=== PATIENT | female | born 1965 | race Caucasian/White ===

== ENCOUNTER 2022-06-05 17:24 | Emergency (ER) | payer OTHER ==
[2022-06-05] MEDS ORDERED: AMOX TR-K CLV1 EAC4 PO (19:07)
== END 2022-06-05 19:15 | disposition home or self-care (01) ==
LOC: FER 17:24
DX: S01.511A Laceration without foreign body of lip, initial encounter (principal); Z23 Encounter for immunization; Z91.040 Latex allergy status; W54.0XXA Bitten by dog, initial encounter; Y92.009 Unspecified place in unspecified non-institutional (private) residence as the place of occurrence of the external cause; Y93.89 Activity, other specified
CPT/HCPCS: 90471; 90715